=== PATIENT | female | born 1995 | race African-American/Black ===

== ENCOUNTER 2020-08-21 18:55 | Inpatient (IN) | payer OTHER ==
[2020-08-21 20:55] VITALS: BMI 32.8
[2020-08-21] MEDS ORDERED: ELECTROLYTE-148 SOLN 1,000 ML IV SCH (21:15)
[2020-08-21] MEDS ORDERED: AMPICILLIN - 2 GM in SODIUM CHLORIDE 100 ML IVPB ONE (21:18)
[2020-08-21 21:30] LABS: RETICULOCYTES 2.55 % (0.5-1.5)
[2020-08-21 21:31] LABS: BASO % 0.3 % (0-2.0); EOS % 1.1 % (0-4.5); HEMATOCRIT 30.7 % (32.4-45.2); HEMOGLOBIN 9.9 GM/dL (10.7-15.3); LYMPH % 17.9 % (8-40); MCH 22.6 pg (25.7-33.7); MCHC 32.1 g/dl (32.0-36.0); MEAN CELL VOLUME 70.5 fl (80-96); MEAN PLT VOLUME 9.5 fl (7.5-11.1); MONO % 7.8 % (3.8-10.2); NEUT % 72.9 % (42.8-82.8); PLATELET COUNT 245 K/MM3 (134-434); RBC 4.36 M/mm3 (3.60-5.2); RDW 17.4 % (11.6-15.6)
[2020-08-21] MEDS ORDERED: DINOPROSTONE 10 MG VAGINAL SUPPOSITORY VG ONE (21:36)
[2020-08-21 21:37] LABS: INR 0.88 (0.83-1.09); PROTHROMBIN TIME (PATIENT) 10.9 SEC (9.7-13.0)
[2020-08-21 21:39] LABS: ACTIVATED PTT 27.3 SECONDS (25.2-36.5)
[2020-08-21 21:49] LABS: EPI CELLS >36 /uL (0-25.1); HYALINE CASTS 21 /uL (0-3.1); URINE APPEARANCE CLOUDY; URINE BACTERIA >9,000 /uL (0-1359); URINE BILIRUBIN NEGATIVE (NEGATIVE); URINE COLOR YELLOW; URINE GLUCOSE (UA) NEGATIVE (NEGATIVE); URINE KETONE 2+ (NEGATIVE); URINE LEUK ESTERASE 2+ (NEGATIVE); URINE NITRITE NEGATIVE (NEGATIVE); URINE PROTEIN 1+ (NEGATIVE); URINE RBC 11 /uL (0-23.9); URINE UROBILINOGEN 0.2 mg/dL (0.2-1.0); URINE WBC 726 /uL (0-25.8)
[2020-08-21 21:54] LABS: ALBUMIN 2.9 g/dl (3.4-5.0); BLOOD UREA NITROGEN 6.5 mg/dL (7-18); CALCIUM 8.4 mg/dL (8.5-10.1)
[2020-08-21 21:57] LABS: URIC ACID 4.3 mg/dL (2.6-7.2)
[2020-08-21 21:58] LABS: METHADONE, UR NEGATIVE ng/ml (CUTOFF=300); URINE AMPHETAMINES NEGATIVE ng/ml (CUTOFF=500)
[2020-08-21 21:58] LABS: CREATININE 0.5 mg/dL (0.55-1.3)
[2020-08-21] MEDS ORDERED: LABETALOL HCL 100 MG TABLET (FP) ONE (21:58)
[2020-08-21 21:59] LABS: BILIRUBIN,TOTAL 0.2 mg/dL (0.2-1); TOT PROT 6.7 g/dl (6.4-8.2)
[2020-08-21 21:59] LABS: PHENCYCLIDINE,URINE NEGATIVE ng/ml (CUTOFF=25)
[2020-08-21] MEDS: LABETALOL HCL 100 MG TABLET (FP) PO SCH (22:00)
[2020-08-21 22:05] LABS: URINE BARBITURATES NEGATIVE ng/ml (CUTOFF=200)
[2020-08-21 22:06] LABS: COCAINE, UR NEGATIVE ng/ml (CUTOFF=300)
[2020-08-21 22:11] LABS: OPIATES, URI NEGATIVE ng/ml (CUTOFF=300)
[2020-08-21 22:12] LABS: URINE BENZODIAZEPINES NEGATIVE ng/ml (CUTOFF=200)
[2020-08-22] MEDS ORDERED: BUTORPHANOL TARTRATE 2 MG/ML VIAL ONE (07:47)
[2020-08-22] MEDS ORDERED: PROMETHAZINE HCL 25 MG/1 ML VIAL ONE (07:47)
[2020-08-22] MEDS ORDERED: PROMETHAZINE HCL 25 MG/1 ML VIAL IVPB ONE (07:50)
[2020-08-22] MEDS ORDERED: BUTORPHANOL TARTRATE 2 MG/ML VIAL IVPB ONE (07:50)
[2020-08-22] MEDS: LABETALOL HCL 100 MG TABLET (FP) PO SCH ×3 (10:48→21:35)
[2020-08-22] MEDS ORDERED: LABETALOL HCL 100 MG TABLET (FP) ONE (10:49)
[2020-08-22] MEDS ORDERED: LABETALOL HCL 200 MG TABLET (FP) ONE (10:49)
[2020-08-22] MEDS ORDERED: AMPICILLIN SODIUM 2 GM VIAL ONE (10:50)
[2020-08-22] MEDS ORDERED: AMPICILLIN - 2 GM in SODIUM CHLORIDE 100 ML IVPB ONE (11:01)
[2020-08-22] MEDS ORDERED: PCA PUMP NR ONE (11:06)
[2020-08-22] MEDS ORDERED: FENTANYL/BUPIVACAINE/NS/PF - PCEA - 50 ML DISP.SYRIN EP ONE ×2 (11:07→15:44)
[2020-08-22] MEDS ORDERED: OXYTOCIN 30 UNITS in 0.9% NS 30 UNIT/500 ML INFUS.BAG IVPB SCH (11:15)
[2020-08-22] MEDS ORDERED: OXYTOCIN 30 UNITS in 0.9% NS 30 UNIT/500 ML INFUS.BAG IVPB ONE (11:52)
[2020-08-22] MEDS ORDERED: AMPICILLIN SODIUM 1 GM VIAL ONE ×2 (14:31→18:30)
[2020-08-22] MEDS ORDERED: AMPICILLIN - 1 GM in SODIUM CHLORIDE 100 ML IVPB SCH (15:00)
[2020-08-22] MEDS: AMPICILLIN - 1 GM in SODIUM CHLORIDE 100 ML IVPB SCH ×5 (15:00→22:11)
[2020-08-22] MEDS ORDERED: ACETAMINOPHEN 325 MG TABLET (FP) ONE (16:07)
[2020-08-22] MEDS ORDERED: ACETAMINOPHEN 325 MG TABLET (FP) PO ONE (16:15)
[2020-08-22] MEDS ORDERED: LIDOCAINE HCL/EPINEPHRINE/PF 10 ML VIAL ONE (16:18)
[2020-08-22] MEDS ORDERED: NALOXONE HCL 0.4 MG/ML VIAL IVPUSH PRN (16:32)
[2020-08-22] MEDS ORDERED: FENTANYL/BUPIVACAINE/NS/PF - PCEA - 50 ML DISP.SYRIN EP SCH (16:45)
[2020-08-22] MEDS ORDERED: LIDOCAINE HCL 1% PRESERVATIVE FREE - 30ML VIAL ONE (18:32)
[2020-08-22] MEDS ORDERED: OXYTOCIN 20 UNITS in 0.9% NS 20 UNIT/1,000 ML INFUS.BAG IV ONE (18:33)
[2020-08-22] MEDS ORDERED: BENZOCAINE 28 GM HEMORRHOIDAL OINTMENT TP PRN (19:29)
[2020-08-22] MEDS ORDERED: BISACODYL 10 MG SUPP.RECT RC PRN (19:29)
[2020-08-22] MEDS ORDERED: ACETAMINOPHEN 325 MG TABLET (FP) PO PRN (19:29)
[2020-08-22] MEDS ORDERED: WITCH HAZEL 50% (TUCKS) 40 PAD/JAR PAD TP PRN (19:29)
[2020-08-22] MEDS ORDERED: BENZOCAINE 20% 57 GM BOTTLE TP PRN (19:29)
[2020-08-22] MEDS ORDERED: METHYLERGONOVINE MALEATE 0.2 MG/1 ML AMP IM PRN (19:29)
[2020-08-22] MEDS ORDERED: OXYTOCIN 20 UNITS in 0.9% NS 20 UNIT/1,000 ML INFUS.BAG IV SCH (19:30)
[2020-08-22] MEDS ORDERED: NIFEdipine 10 MG CAPSULE (FP) PO ONE (19:30)
[2020-08-22] MEDS: IBUPROFEN 600 MG TABLET (FP) PO PRN (21:35)
[2020-08-22 22:03] LABS: CORD BASE EXCESS -10.9 mmol/L (0-2); CORD HCO3 15.7 mmHg (20-29); CORD PCO2 37.7 mmHg (30-78); CORD pH 7.238 (7.14-7.44)
[2020-08-23] MEDS: AMPICILLIN - 1 GM in SODIUM CHLORIDE 100 ML IVPB SCH ×2 (02:37→06:35)
[2020-08-23 08:25] LABS: BASO % 0.3 % (0-2.0); EOS % 0.1 % (0-4.5); HEMATOCRIT 23.6 % (32.4-45.2); HEMOGLOBIN 7.5 GM/dL (10.7-15.3); LYMPH % 12.7 % (8-40); MCH 22.2 pg (25.7-33.7); MCHC 31.7 g/dl (32.0-36.0); MEAN PLT VOLUME 9.5 fl (7.5-11.1); MONO % 8.9 % (3.8-10.2); PLATELET COUNT 197 K/MM3 (134-434); RBC 3.36 M/mm3 (3.60-5.2); RDW 17.3 % (11.6-15.6); WHITE BLOOD COUNT 11.3 K/mm3 (4.0-10.0)
[2020-08-23] MEDS: LABETALOL HCL 100 MG TABLET (FP) PO SCH ×2 (09:17→21:16)
[2020-08-23] MEDS: PRENATAL VITAMINS W/ FOLIC ACID TABLET (FP) PO SCH (09:17)
[2020-08-23] MEDS: FERROUS SO4 325 MG TABLET (FP) PO SCH ×2 (09:17→17:25)
[2020-08-23] MEDS ORDERED: PENICILLIN G BENZATHINE 2,400,000 UNIT/4 ML PFS IM ONE (11:00)
[2020-08-23] MEDS: IBUPROFEN 600 MG TABLET (FP) PO PRN (17:25)
[2020-08-23] MEDS ORDERED: SENNOSIDES/DOCUSATE COMBO (SENNA PLUS) TABLET (UD) PO PRN (22:00)
[2020-08-24] MEDS: FERROUS SO4 325 MG TABLET (FP) PO SCH (08:53)
[2020-08-24] MEDS: PRENATAL VITAMINS W/ FOLIC ACID TABLET (FP) PO SCH (11:35)
[2020-08-24] MEDS: LABETALOL HCL 100 MG TABLET (FP) PO SCH (11:35)
[2020-08-24 12:01] VITALS: BP 150/95; PULSE 91; TEMP 98.5
== END 2020-08-24 14:20 | disposition home or self-care (01) | DRG 560 ==
LOC: JLDR 18:55 → J3W 08-22 21:29
PROVIDERS: ADMIT Student in an Organized Health Care Education/Training Program; ATTEND Obstetrics & Gynecology
PROC: 3E0P7VZ Introduction of Hormone into Female Reproductive, Via Natural or Artificial Opening (ICD-10-PCS; 2020-08-21)
PROC: 10E0XZZ Delivery of Products of Conception, External Approach (ICD-10-PCS; principal; 2020-08-22)
PROC: 10907ZC Drainage of Amniotic Fluid, Therapeutic from Products of Conception, Via Natural or Artificial Opening (ICD-10-PCS; 2020-08-22)
PROC: 0W8NXZZ Division of Female Perineum, External Approach (ICD-10-PCS; 2020-08-22)
DX: O14.04 Mild to moderate pre-eclampsia, complicating childbirth (principal); O48.0 Post-term pregnancy; O99.824 Streptococcus B carrier state complicating childbirth; Z3A.41 41 weeks gestation of pregnancy; Z37.0 Single live birth
CPT/HCPCS: 36415; 36600; 59409; 80053; 80307; 81003; 82570; 82803; 82977; 84156; 84550; 85025; 85032; 85045; 85610; 85730; 86593; 86780; 86850; 86900; 86901; C9803; U0003; U0005